=== PATIENT | female | born 1955 | race Caucasian/White ===

== ENCOUNTER 2023-08-27 15:53 | Emergency (ER) | payer MEDICARE ==
--- NOTE | 2023-08-27 17:09 | XRAY Report ---
PROCEDURE: Wrist 3 View RT INDICATIONS: FELL/INJURED R WRIST/SWELLING/PAIN + TENDERNESS TECHNIQUE: 3 views of the wrist were acquired. COMPARISON: None. FINDINGS: Bones: Displaced and comminuted fracture of the distal radius with intra-articular extension with an terior angulation of the distal fracture fragment. Displaced ulnar styloid fracture. Mild widening of the scapholunate interval, recommend attention on follow-up exams. Decreased osseous mineralization. Soft tissues: No suspicious soft tissue calcifications or masses. IMPRESSION: 1.Displaced, comminuted and intra-articular fracture of the distal radius. Displaced ulnar styloid fr acture. 2.Mild widening of the scapholunate interval, attention on follow-up exams is recommended. Reviewed by: Dereje Webster MD on 08/27/2023 5:08 PM PDT Approved by: Dereje Webster MD on 08/27/2023 5:08 PM PDT Station ID: [id number]
[2023-08-27] MEDS ORDERED: oxyCODONE 5 MG TABLET PO STA (17:24)
[2023-08-27] MEDS ORDERED: TETANUS/DIPHTHERIA/PERTUSSIS 0.5 ML SYRINGE IM ONE (17:24)
--- NOTE | 2023-08-27 17:26 | ED Physician Documentation ---
PD HPI UPPER EXT INJURY - Stated complaint Stated Complaint: RT ARM PX - Chief complaint Chief Complaint: Ext Problem - History obtained from History obtained from: Patient - History of Present Illness Location: Right, Wrist Type of injury: Fall Where injury occurred: Street Timing - onset: How many hours ago (1) Timing - duration: Hours (1) Timing - details: Abrupt onset Pain level max: 7 Pain level now: 6 Improved by: Rest, Ice, Immobilization Worsened by: Moving, Palpating Associated symptoms: No: Weakness, Numbness, Tingling Contributing factors: No: Anticoagulated, Prior ortho surgery, Prosthetic joint, Work related Recently seen: Not recently seen - Additonal information Additional information: 68-year-old female presents after trip and fall on the sidewalk while leaving a business today. Landed on the right wrist. Has pain and swelling to the right wrist. No head injury. No neck or back pain. No headache. Patient is right- handed. Review of Systems Constitutional: denies: Fever, Chills GI: denies: Nausea, Vomiting, Diarrhea Skin: denies: Rash Musculoskeletal: denies: Neck pain, Back pain Neurologic: denies: Headache, Head injury, LOC PD PAST MEDICAL HISTORY - Present Medications Home Medications: Ambulatory Orders Medication Instructions Recorded Confirmed oxyCODONE [Roxicodone] 5 - 10 mg PO Q6H PRN #14 tablet 08/27/23 MDD 6 - Allergies Allergies/Adverse Reactions: Allergies Allergy/AdvReac Type Severity Reaction Status Date / Time cephalexin [From Keflex] AdvReac Unknown Verified 08/27/23 16:22 Penicillins AdvReac Unknown Verified 08/27/23 16:22 - Living Situation Living Situation: reports: With family Living Arrangement: reports: At home - Social History Does the pt smoke?: Yes PD ED PE NORMAL - Vitals Vital signs reviewed: Yes - General General: Alert and oriented X 3, No acute distress - HEENT HEENT: Atraumatic, PERRL, Moist mucous membranes - Neck Neck: Supple, no meningeal sign, No bony TTP - Cardiac Cardiac: RRR, Strong equal pulses - Respiratory Respiratory: No respiratory distress - Abdomen Abdomen: Soft, Non tender, Non distended - Back Back: No spinal TTP - Derm Derm: Warm and dry - Extremities Extremities: Other (Swelling and tenderness to the dorsum of the right wrist. Neurovascular intact. There was a ring on the right finger that was removed. 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, No motor deficit, No sensory deficit, Normal speech Eye Opening: Spontaneous Motor: Obeys Commands Verbal: Oriented GCS Score: 15 - Psych Psych: Normal mood, Normal affect Results - Vitals Vitals: Vital Signs - 24 hr 08/27/23 08/27/23 16:13 18:09 Temperature 36.8 C Heart Rate 55 L 55 L Respiratory 18 16 Rate Blood Pressure 140/74 H 146/62 H O2 Saturation 96 98 Oxygen O2 Source Room air - Rads (name of study) Right wrist x-ray Relevant Findings:: Final report received, See rad report Procedures - Splint (location) - Minor Right wrist Splint applied by: Physician, Nurse Type of splint: Fiberglass, Short arm, Volar cock up Other: Patient tolerated well, No complications, Neurovascular intact, Sling provided PD Medical Decision Making - ED course Complexity details: reviewed results, re-evaluated patient, considered d ifferential, d/w patient ED course: 68-year-old female with a right distal radius fracture, comminuted, impacted. Also has an ulnar styloid fracture. Placed in a volar splint. We will have her follow-up with orthopedics for further care, this injury will likely require surgery to repair the articular surface. Pain well controlled. Will prescribe pain medication for home. Neurovascular intact. No evidence of head injury. No indication for head CT. Patient counseled regarding signs and symptoms for which I believe and urgent re-evaluation would be necessary. Patient with good understanding of and agreement to plan and is comfortable going home at this time This document was made in part using voice recognition software. While efforts are made to proofread this document, sound alike and grammatical errors may occur. Departure - Departure Disposition: 01 Home, Self Care Clinical Impression: Distal radius fracture, right Qualifiers: Encounter type: initial encounter Fracture type: closed Fracture morphology: unspecified fracture morphology Qualified Code(s): S52.501A - Unspecified fracture of the lower end of right radius, initial encounter for closed fracture Condition: Good Instructions: ED Fx Forearm Radius Ulna No Redu Requ Follow-Up: [facility] [Provider Group] Prescriptions: oxyCODONE [Roxicodone] 5 - 10 mg PO Q6H PRN #14 tablet MDD 6 PRN Reason: pain Comments: Your prescriptions were sent to [facility] in [place]. Please follow-up with orthopedics for further care. Your images should be available at [facility]. I have included a copy of the report below. You can use the sling as needed for comfort. Ice and elevate the area. Return if you notice numbness, tingling or other new or worrisome symptoms. You will need to call the orthopedic office or your primary care provider and tell them that you have a displaced, comminuted intra-articular fracture of the distal radius. There is also mild widening of the scapholunate interval. I am prescribing a short course of narcotic pain medication for you. These are potentially dangerous and addictive medications that should be used carefully. These medications may constipate you. Take an yyzn-[id number] stool softener (docusate) twice daily with plenty of water while taking these medications. If you go 24 hours without a bowel movement, take [id number] miralax, per package instructions. Do not drink or drive while taking these medications. If you received narcotic or sedating medications while in the emergency department, do not drive for 24 hours. Store this medication in a safe, secure place and out of reach of children. It is a violation of federal law to give or sell this medication to another person or to use in a manner other than prescribed. The ED will not refill narcotic prescriptions, including prescriptions lost or stolen. To dispose of unwanted medications: 1. [facility] at [address] in [place] has a medication drop box. They accept prescription medications (in pill form) Friday through Friday 9:00 a.m. to 5:00 p.m. 2. The [facility] [place] [employer] accepts prescription medications (in pill form only) for disposal year round. Call for more information. 3. Contact the [facility] for the next [facility] sponsored prescription drug collection event. , [phone], or [phone]; INDICATIONS: FELL/INJURED R WRIST/SWELLING/PAIN + TENDERNESS TECHNIQUE: 3 views of the wrist were acquired. COMPARISON: None. FINDINGS: Bones: Displaced and comminuted fracture of the distal radius with intra- articular extension with anterior angulation of the distal fracture fragment. Displaced ulnar styloid fracture. Mild widening of the scapholunate interval, recommend attention on follow-up exams. Decreased osseous mineralization. Soft tissues: No suspicious soft tissue calcifications or masses. IMPRESSION: 1.Displaced, comminuted and intra-articular fracture of the distal radius. Displaced ulnar styloid fracture. 2.Mild widening of the scapholunate interval, attention on follow-up exams is recommended. Forms: PCP List Discharge Date/Time: 08/27/23 18:10
[2023-08-27 18:18] VITALS: BP 146/62; O2SAT 98
== END 2023-08-27 18:10 | disposition home or self-care (01) ==
LOC: ED 15:53
DX: S52.501A Unspecified fracture of the lower end of right radius, initial encounter for closed fracture (principal); W01.0XXA Fall on same level from slipping, tripping and stumbling without subsequent striking against object, initial encounter; Y92.89 Other specified places as the place of occurrence of the external cause; Z23 Encounter for immunization
CPT/HCPCS: 29125; 73110; 90471; 90715; 99283; 99284; A9270